=== PATIENT | female | born 1945 | race Caucasian/White ===

== ENCOUNTER 2023-12-30 10:12 | Emergency (ER) | payer MEDICARE, SELFPAY ==
[2023-12-30] VITALS (11 sets, daily range): BP systolic 211–245; BP diastolic 101–128; PULSE 80–97; RESP 18; TEMP 37.1; O2SAT 93–97
--- NOTE | 2023-12-30 10:30 | RT.EKG_ITS ---
APPROVED REPORT Exam: Resting ECG Reason for Exam: Nose Bleed Patient Location: E HR:84 bpm ECG Measurements Heart Rate 84 AXIS SD 181 P 56 QRSd 83 QRS -20 QT 396 T 62 QTc 468 Conclusion Sinus rhythm...normal P axis, V-rate 60- 99 Left ventricular hypertrophy...multiple voltage criteria Narrow complex normal sinus rhythm at a rate of 84. Intervals within normal limits. Left axis devia tion LVH based on voltage criteria in aVL. No ST segment abnormalities. T wave flattening in aVL. No prior for comparison.
[2023-12-30 11:04] LABS: Abs Immature Grans 0.03 10^3/uL (0.0-0.06); Absolute Basophil Count 0.02 10^3/uL (0.0-0.2); Absolute Eosinophil Count 0.05 10^3/uL (0.0-0.7); Absolute Lymphocyte Count 1.19 10^3/uL (1.2-3.4); Absolute Monocyte Count 0.41 10^3/uL (0.1-0.8); Absolute Neutrophil Count 4.63 10^3/uL (1.2-6.7); Basophils % 0.3; Eosinophils % 0.8; HCT 42.9 % (36.0-46.0); HGB 13.9 g/dL (11.2-15.7); Immature Grans % 0.5; Lymphocytes % 18.8; MCH 29.4 pg (27.0-33.0); MCHC 32.4 % (32.0-36.0); MCV 91 fL (80-95); MPV 9.1 fL (8.0-11.0); Monocytes % 6.5; Neutrophils % 73.1; Platelet Count 297 10^3/uL (130-400); RBC 4.73 10^6/uL (3.93-5.22); RDW 12.5 % (11.7-14.6); RDW-SD 41.1 fL; WBC 6.33 10^3/uL (4.4-10.8)
[2023-12-30 11:19] LABS: ALT 25 U/L (14-59); AST 15 U/L (15-37); Albumin 3.8 g/dL (3.4-5.0); Alkaline Phosphatase 94 U/L (46-116); Anion Gap 9.2 mmol/L (3-11); BUN 16 mg/dL (7-18); Bilirubin, Total 0.5 mg/dL (0.2-1.0); CO2 28.8 mmol/L (21.0-32.0); Calcium 9.5 mg/dL (8.5-10.1); Chloride 104 mmol/L (98-107); Estimated GFR 58.39 (mL/min/1.73m2); Glucose 251 mg/dL (74-106); Magnesium 1.9 mg/dL (1.8-2.4); Potassium 4.1 mmol/L (3.5-5.1); Sodium 142 mmol/L (136-145); Total Protein 7.5 g/dL (6.4-8.2)
[2023-12-30 11:27] LABS: Bilirubin Negative (Negative); Blood Negative (Negative); Clarity Clear (Clear); Glucose 100 mg/dL (Negative); Ketones Trace mg/dL (Negative); Leukocyte Esterase Small (Negative); Nitrite Negative (Negative); Urobilinogen 0.2 mg/dL (Up to 0.2); pH 6.5 (5-8)
[2023-12-30 11:39] LABS: Bacteria Few HPF (Negative); C & S Indicated? No/Sq. Contamination; Casts Negative LPF (Negative); Crystals Negative HPF (Negative); Epithelial Cells Many HPF (Negative); Mucus Negative (Negative); Other Cells Rare Renal (Negative); RBC 0-2 HPF (0-2); WBC 20-50 HPF (0-5)
[2023-12-30] MEDS: Cellulose,Oxidized 2X3 PKT 1 EACH MC (11:41)
--- NOTE | 2023-12-30 11:59 | W.ED.GENAD ---
HPI General Date/Time Provider Initiated Documentation: 12/30/23 10:25. HPI Narrative: This 78-year-old female with history of hypertension and diabetes who self discontinued meds many years ago because they are poison presents with report of recurrent epistaxis. She was seen in her doctor's prior to this and sent here for assessment. On exam she is not actively bleeding she denies any trauma. She states she has a history of epistaxis in the past but it has been many years. She denies any headache, chest pain, shortness of breath, urinary symptoms, or vision change. She otherwise feels well. Related Data Home Medications Medication Instructions Recorded Confirmed lisinopril 10 mg tablet 10 mg PO DAILY #14 tabs 12/30/23 Previous Rx's Medication Instructions Recorded lisinopril 10 mg tablet 10 mg PO DAILY #14 tabs 12/30/23 Allergies Allergy/AdvReac Type Severity Reaction Status Date / Time Penicillins AdvReac Intermediate Other (See Verified 12/30/23 10:24 Comment) Sulfa (Sulfonamide AdvReac Intermediate Other (See Verified 12/30/23 10:24 Antibiotics) Comment) General Stated Complaint: Epistaxis CINTHIA: 3 Course Vital Signs Vital signs: Vital Signs Temperature 37.1 C 12/30/23 10:19 Pulse 93 H 12/30/23 10:19 Respiratory Rate 18 12/30/23 10:19 Blood Pressure 245/128 H 12/30/23 10:19 Pulse Oximetry 97 12/30/23 10:19 Temperature 37.1 C 12/30/23 10:19 Pulse 93 H 12/30/23 10:19 Respiratory Rate 18 12/30/23 10:19 Respiratory Effort Normal 12/30/23 11:04 Blood Pressure 245/128 H 12/30/23 10:19 Pulse Oximetry 97 12/30/23 10:19 Oxygen Delivery Method Room Air 12/30/23 10:19 Oxygen Flow Rate 0 12/30/23 10:19 Lab/Test Results Lab/Test Results: Laboratory Tests Range/Units 12/30/23 12/30/23 12/30/23 10:44 10:45 11:14 WBC (4.4-10.8) 10^3/uL 6.33 RBC (3.93-5.22) 10^6/uL 4.73 Hgb (11.2-15.7) g/dL 13.9 Hct (36.0-46.0) % 42.9 MCV (80-95) fL 91 MCH (27.0-33.0) pg 29.4 MCHC (32.0-36.0) % 32.4 RDW (11.7-14.6) % 12.5 Plt Count (130-400) 10^3/uL 297 MPV (8.0-11.0) fL 9.1 Immature Gran % 0.5 Neutrophils % 73.1 Lymphocytes % 18.8 Monocytes % 6.5 Eosinophils % 0.8 Basophils % 0.3 Nucleated RBC % (0.0-0.3) % 0.0 Absolute Neutrophils (1.2-6.7) 10^3/uL 4.63 Absolute Lymphocytes (1.2-3.4) 10^3/uL 1.19 L Absolute Monocytes (0.1-0.8) 10^3/uL 0.41 Absolute Eosinophils (0.0-0.7) 10^3/uL 0.05 Absolute Basophils (0.0-0.2) 10^3/uL 0.02 Sodium (136-145) mmol/L 142 Potassium (3.5-5.1) mmol/L 4.1 Chloride (98-107) mmol/L 104 Carbon Dioxide (21.0-32.0) mmol/L 28.8 Anion Gap (3-11) mmol/L 9.2 BUN (7-18) mg/dL 16 Creatinine (0.55-1.02) mg/dL 1.0 Est GFR (CKD-EPI 2020) (mL/min/1.73m2) 58.39 Glucose (74-106) mg/dL 251 H Calcium (8.5-10.1) mg/dL 9.5 Magnesium Cancelled 1.9 Total Bilirubin (0.2-1.0) mg/dL 0.5 AST (15-37) U/L 15 ALT (14-59) U/L 25 Alkaline Phosphatase (46-116) U/L 94 Total Protein (6.4-8.2) g/dL 7.5 Albumin (3.4-5.0) g/dL 3.8 Urine Color (Yellow) Yellow Urine Clarity (Clear) Clear Urine pH (5-8) 6.5 Ur Specific [place] (1.005-1.025) 1.020 Urine Protein (Neg-Trace) mg/dL 30 H Urine Ketones (Negative) mg/dL Trace H Urine Blood (Negative) Negative Urine Nitrite (Negative) Negative Urine Bilirubin (Negative) Negative Urine Urobilinogen (Up to 0.2) mg/dL 0.2 Ur Leukocyte Esterase (Negative) Small H Urine RBC (0-2) HPF 0-2 Urine WBC (0-5) HPF 20-50 H Ur Epithelial Cells (Negative) HPF Many Urine Crystals (Negative) HPF Negative Urine Bacteria (Negative) HPF Few Urine Casts (Negative) LPF Negative Urine Mucus (Negative) Negative Urine Other (Negative) Rare Renal Ur Culture Indicated? No/Sq. Contamination Urine Glucose (Negative) mg/dL 100 H Medical Decision Making Alert and oriented times four 78-year-old female who presents with recurrent epistaxis from her doctor's office On exam there is resolution of epistaxis Patient is markedly hypertensive although asymptomatic with this EKG is consistent with longstanding hypertension, labs are consistent with kuc-[id number] diabetes, patient adamantly refusing metformin, no evidence of DKA or HHS Fully alert and oriented, ambulatory with steady gait, asymptomatic hypertension Will reinitiate patient's lisinopril 10 mg and refer for recheck in 48 hours She had recurrence of the epistaxis on assessment, I did place Surgicel and a Merisel in patient's right nare and she will remove this at home in 48 to 72 hours There is no indication for antibiotics at this time, patient is aware that this cannot stay in place longer than 72 hours without antibiotics I discussed the importance of this Patient will be discharged with resolution of pain at time of reassessment Quality:SDOH Health Related Social Needs: No Data to Display PFSH All Active Problems (Updated 12/30/23 @ 11:51 by SISSY Montoya) Hypertension (Chronic) Epistaxis (Acute) Social History Smoking/Tobacco Use Status: Never Smoking risk assessment performed?: Yes Alcohol Intake: never Do you feel safe at home: Yes Do you feel safe in your relationship?: Yes Discharge Plan Disposition Patient Disposition: Home Condition: Stable Discharge Details Clinical Impression: Epistaxis, Hypertension Primary Care Provider: Unknown,Unknown ED Provider: Tabatha Shen Home Meds and New Rx's Prescriptions: New lisinopril 10 mg tablet 10 mg PO DAILY Qty: 14 0RF Discharge Instructions Instructions: Nosebleed (ED), Hypertension (ED) Additional Instructions: Follow-up with your doctor for recheck in 48 hours I started you on blood pressure medication your blood pressure is very high and has likely been very high for a long period of time If you are able to purchase a blood pressure cuff think this is a good idea otherwise he can either go to your primary care physician and have a nurse visit for blood pressure check or go to the pharmacy and have her blood pressure checked I recommend cutting her nostrils daily with Vaseline Humidifier in your room The nasal packing will need to be removed in 72 hours, do not keep it in place for any longer, you can actually pull this out on your own and if you do have rebleeding please use the nasal clamp Pull lightly to remove Please return earlier should you have headache, vision change, persistent bleeding, or should he have any reports worsening complaints
[2023-12-30] MEDS: Lisinopril 10 MG TAB PO (12:07)
--- NOTE | 2023-12-31 12:02 | NUR.NOTE ---
Accessed pt chart to determine the number of EKG orders. Duplicate order cancelled. Nursing Note:
== END 2023-12-30 12:20 | disposition home or self-care (01) ==
PROVIDERS: Emergency Provider Physician Assistant
DX: R04.0 Epistaxis (principal); I10 Essential (primary) hypertension; E11.9 Type 2 diabetes mellitus without complications
CPT/HCPCS: 30901; 80053; 93005; 99283; 81003; 81015; 83735; 85025; 93010

== ENCOUNTER 2024-01-20 16:02 | Emergency (ER) | payer BC, SELFPAY ==
[2024-01-20 16:07] VITALS: BP 228/112; PULSE 90; RESP 20; O2SAT 95
--- NOTE | 2024-01-20 16:07 | ED.GENADUL_ITS ---
Discharge Plan Disposition Patient Disposition: Home Discharge Details Clinical Impression: Elevated systolic blood pressure reading with diagnosis of hypertension Primary Care Provider: Unknown,Unknown ED Provider: Jann Valdovinos Home Meds and New Rx's Prescriptions: Continued lisinopril 10 mg tablet 10 mg PO DAILY Qty: 14 0RF garlic 1,000 mg capsule 1,000 mg PO DAILY Discharge Instructions Instructions: DASH Eating Plan (ED), Hypertension (ED), Diabetes and Nutrition (ED) Additional Instructions: You are seen in the emergency department for your elevated blood pressure. Your blood work shows that you are not anemic and that your kidneys are working well. Please record your blood pressure every day and follow-up with your primary care provider. As we discussed, please return to the emergency department if you develop chest pain shortness of breath or any weakness in any of your extremities or difficulty speaking. Discharge Data Discharge Date/Time-TO BE ENTERED AT DEPARTURE: 01/20/24 16:56 HPI General Date/Time Provider Initiated Documentation: 01/20/24 16:07 . HPI Narrative: MDM This is an overall very well-appearing normothermic and not tachycardic 78-year-old female with diabetes and hypertension but no complaints. Specifically no chest pain so I did not obtain an ECG. Patient is neurologically intact so my suspicion for CVA is low so I did not feel that the patient required a CAT scan and MRI nor would she be of candidate for tPA. No epistaxis. Patient does have some dyspnea on exertion but is not volume overloaded and had no B-lines on limited bedside echocardiogram so my suspicion was low for acute CHF. Given no headache I was not concerned for intracranial hemorrhage. Based on the patient's age my suspicion for renal arterial stenosis is low also did not feel that the patient required a CT angiogram. No tachycardia to suggest pheochromocytoma so I did not send metanephrines. Patient does not have proptosis so my suspicion was low for Graves' disease so I did not send a TSH. Will obtain basic labs to assess for acute renal failure. Will also screen for DKA though the patient denies polyuria polydipsia. Her elevated A1c was consistent with diabetes at 9.7% however patient reports that she has had aches from metformin and does not wish to restart this medication. I considered posterior circulation CVA however the patient has no nystagmus I did not apply the hints exam. Furthermore patient notes that her dizziness is more of a lightheadedness. Patient, her great granddaughter and I discussed that the patient's blood pressure could be made any particular number in the emergency department but that there were iatrogenic risks associated with rapid reductions in blood pressure in the setting of longstanding hypertension. We d iscussed risks of stroke due to sudden reductions in blood pressure. Given that the patient is asymptomatic we will screen for endorgan damage and in the absence of any will proceed with conservative outpatient down titration of the patient's blood pressure using escalating doses of antihypertensives and additional agents as best determined by the patient's primary care provider. 4:40 PM Patient did have a mild anion gap at 13.1 with mild hyperglycemia with a serum glucose of 199. Normal bicarbonate??not consistent with DKA. Normal reassuring creatinine. CBC lacks anemia thrombocytopenia and leukocytosis. No signs of endorgan damage. Patient's blood pressure improved mildly without intervention. I provided the patient and her great granddaughter with information on the DASH diet and eating with diabetes. I have advised patient and her great granddaughter to keep a blood pressure diary at home and follow-up with primary care. Advised that the patient may require additional doses of lisinopril and/or additional blood pressure agents. We had a long conversation about return to the emergency department for any chest pain any shortness of breath any weakness or any episodes of syncope. Patient understood her return indications and was discharged with an empiric trial of expectant outpatient management. Chronic conditions affecting the care of the patient: Diabetes History obtained from an outside historian: [facility] progress note External record review: [facility] EMR Medications: N/A Social determinants of health affecting disposition: N/A Management discussed with: N/A Treatment/interventions considered: N/A Response to therapies provided: N/A HPI This is a 78-year-old female with history of hypertension and hyperlipidemia with diabetes and recent A1c of 9.7 arriving to the emergency department via private vehicle with her great granddaughter in the setting of elevated blood pressure. Patient was sent in by her primary care provider as she was noted to have a blood pressure of 196/120. She is on outpatient 10 mg of daily lisinopril and was advised to take a total of 20 mg of lisinopril this morning. She said that she took this. She denies headache chest pain shortness of breath lower extremity swelling. She does feel slightly lightheaded. She has not had any syncope. She was able to drive to her primary care appointment. She denies any nosebleeds. She denies fevers dysuria frequency nausea and shortness of breath. She has had no visual changes. She denies routine tobacco, ethanol, and illicits. Exam General: Well-appearing in no acute distress speaking in complete sentences. Head: Normocephalic, atraumatic. Eye:[Pupils equal, round reactive to light.] Extraocular eye movements intact. No conjunctival injection. No scleral icterus. Ear, nose, mouth, throat: Grossly normal inspection. Normal voice, handling secretions normally. Neck: Trachea midline. Cardiovascular: Well-perfused distal extremities. Regular rate and rhythm. Respiratory: Nonlabored respiration. Clear lungs bilaterally. Gastrointestinal: Nondistended abdomen. Soft nontender. Musculoskeletal: No significant lower extremity pitting edema. Moving all 4 extremities spontaneously. Skin: Normal for age and race, grossly normal temperature and turgor. No acute rash. Neurologic: Alert and appropriate, no apparent acute deficits. GCS 15. Cranial nerves II through XII intact grossly. No dysmetria. No dysdiadochokinesia. 5 out of 5 bilateral upper and lower extremity strength. Psychiatric: Mood and manner are appropriate. Grooming and personal hygiene are appropriate. Related Data Home Medications Medication Instructions Recorded Confirmed lisinopril 10 mg tablet 10 mg PO DAILY #14 tabs 12/30/23 01/20/24 garlic 1,000 mg capsule 1,000 mg PO DAILY 01/20/24 01/20/24 Previous Rx's Medication Instructions Recorded lisinopril 10 mg tablet 10 mg PO DAILY #14 tabs 12/30/23 Allergies Allergy/AdvReac Type Severity Reaction Status Date / Time Penicillins AdvReac Intermediate Other (See Verified 01/20/24 16:10 Comment) Sulfa (Sulfonamide AdvReac Intermediate Other (See Verified 01/20/24 16:10 Antibiotics) Comment) General CINTHIA: 3 Medical Decision Making Quality:SDOH Health Related Social Needs: No Data to Display PFSH All Active Problems (Updated 01/20/24 @ 16:40 by Jann Valdovinos MD) Elevated systolic blood pressure reading with diagnosis of hypertension (Acute) Hypertension (Chronic) Epistaxis (Acute) Social History Smoking/Tobacco Use Status: Never Smoking risk assessment performed?: Yes Alcohol Intake: never Do you feel safe at home: Yes Do you feel safe in your relationship?: Yes POCUS Exam (ED) Limited Cardiac Exam DATE OF EXAM: 01/20/24 TIME OF EXAM: 16:36 PROVIDER THAT PERFORMED THE STUDY: Jann Valdovinos IS THIS A REPEAT EXAM DURING THIS ENCOUNTER: no REASON FOR EXAM: Other indication: Elevated blood pressure VISUALIZED STRUCTURES: Left ventricle and LVOT VIEW OBTAINED: Apical 4-Chamber (Patient could not tolerate apical four- chamber), Parasternal long-axis and Parasternal short-axis PERTINENT FINDINGS/IMPRESSION: No LV dysfunction and No pericardial effusion INCIDENTAL FINDINGS: Aortic outflow track less than 4 cm, good squeeze, no significant pericardial effusion. Patient could not tolerate apical four-chamber. No B-lines bilaterally. Exam complete
[2024-01-20 16:30] LABS: Abs Immature Grans 0.01 10^3/uL (0.0-0.06); Absolute Basophil Count 0.02 10^3/uL (0.0-0.2); Absolute Eosinophil Count 0.03 10^3/uL (0.0-0.7); Absolute Lymphocyte Count 1.42 10^3/uL (1.2-3.4); Absolute Monocyte Count 0.52 10^3/uL (0.1-0.8); Absolute Neutrophil Count 3.32 10^3/uL (1.2-6.7); Basophils % 0.4; Eosinophils % 0.6; HCT 42.2 % (36.0-46.0); HGB 13.8 g/dL (11.2-15.7); Immature Grans % 0.2; Lymphocytes % 26.7; MCH 29.6 pg (27.0-33.0); MCHC 32.7 % (32.0-36.0); MCV 91 fL (80-95); MPV 9.1 fL (8.0-11.0); Monocytes % 9.8; Neutrophils % 62.3; Platelet Count 299 10^3/uL (130-400); RBC 4.66 10^6/uL (3.93-5.22); RDW 12.5 % (11.7-14.6); WBC 5.32 10^3/uL (4.4-10.8)
[2024-01-20 16:33] VITALS: TEMP 36.7
[2024-01-20 16:38] LABS: Anion Gap 13.4 mmol/L (3-11); BUN 11 mg/dL (7-18); CO2 23.6 mmol/L (21.0-32.0); CREATININE 0.8 mg/dL (0.55-1.02); Calcium 9.4 mg/dL (8.5-10.1); Chloride 103 mmol/L (98-107); Estimated GFR 76.31 (mL/min/1.73m2); Glucose 199 mg/dL (74-106); Potassium 3.8 mmol/L (3.5-5.1); Sodium 140 mmol/L (136-145)
[2024-01-20 16:53] VITALS: BP 202/110; PULSE 87; O2SAT 98
== END 2024-01-20 16:56 | disposition home or self-care (01) ==
LOC: ER 16:58
PROVIDERS: Emergency Provider Emergency Medicine
DX: R42 Dizziness and giddiness (principal); I10 Essential (primary) hypertension; R06.00 Dyspnea, unspecified; R06.02 Shortness of breath
CPT/HCPCS: 80048; 93308; 99282; 85025; 99283

== ENCOUNTER 2024-04-08 17:12 | Emergency (ER) | payer BC, SELFPAY ==
[2024-04-08] VITALS (24 sets, daily range): BP systolic 175–227; BP diastolic 85–115; PULSE 71–93; RESP 14–26; TEMP 37.2; O2SAT 95
--- NOTE | 2024-04-08 17:45 | RT.EKG_ITS ---
APPROVED REPORT Exam: Resting ECG Reason for Exam: weakness Patient Location: E HR:76 bpm ECG Measurements Heart Rate 76 AXIS MT 173 P 25 QRSd 90 QRS -23 QT 394 T 27 QTc 444 Conclusion Sinus rhythm...normal P axis, V-rate 60- 99 Left ventricular hypertrophy...multiple voltage criteria Narrow complex normal sinus rhythm at a rate of 76. Left axis deviation LVH based on voltage criteri a. Intervals within normal limits. No ST segment abnormalities. No T wave versions. Compared to p rior dated earlier this year T wave inversion in aVL has improved. T waves are now more prominent in V2. No acute injury pattern.
[2024-04-08 18:27] LABS: Abs Immature Grans 0.02 10^3/uL (0.0-0.06); Absolute Basophil Count 0.02 10^3/uL (0.0-0.2); Absolute Eosinophil Count 0.04 10^3/uL (0.0-0.7); Absolute Monocyte Count 0.55 10^3/uL (0.1-0.8); Basophils % 0.4 %; Eosinophils % 0.7 %; HCT 39.7 % (36.0-46.0); HGB 13.1 g/dL (11.2-15.7); Immature Grans % 0.4 %; Lymphocytes % 32.5 %; MCH 29.9 pg (27.0-33.0); MCV 91 fL (80-95); MPV 9.1 fL (8.0-11.0); Monocytes % 9.9 %; Neutrophils % 56.1 %; Platelet Count 272 10^3/uL (130-400); RBC 4.38 10^6/uL (3.93-5.22); RDW 12.6 % (11.7-14.6); RDW-SD 41.8 fL; WBC 5.53 10^3/uL (4.4-10.8)
[2024-04-08] MEDS: hydroCHLOROthiazide 25 MG TAB PO (18:37)
--- NOTE | 2024-04-08 18:37 | ED.GENADUL_ITS ---
Discharge Plan Disposition Patient Disposition: Home Discharge Details Clinical Impression: Light-headed feeling, Hypertension, Diabetes Primary Care Provider: Unknown,Unknown ED Provider: Tabatha Shen Home Meds and New Rx's Prescriptions: New metoprolol succinate [Toprol XL] 25 mg tablet extended release 24 hr 12.5 mg PO HS Qty: 14 0RF hydrochlorothiazide 25 mg tablet 25 mg PO QAM Qty: 30 0RF Continued garlic 1,000 mg capsule 1,000 mg PO DAILY Discontinued lisinopril 10 mg tablet 10 mg PO DAILY Qty: 14 0RF Discharge Instructions Instructions: Hypertension (ED), Diabetic Hyperglycemia (ED) Additional Instructions: Take the hydrochlorothiazide in the morning take a multivitamin daily with the hydrochlorothiazide Take the metoprolol half a tablet every evening Your blood sugar is quite high, please follow-up with your doctor regarding managing this as this can cause your symptoms as well Please follow-up with your doctor on Thursday for reassessment Check your blood pressure every day and keep a journal It sounds like the first medication he tried was lisinopril, this caused an allergic reaction and this was discontinued, the second medication he took with amlodipine and he became quite dizzy with this and it was discontinued, the third medication which you are taking now is metoprolol, I am decreasing the dose of the metoprolol to see if it helps with your symptoms and adding on a new medication hydrochlorothiazide which she will take in the morning Please return earlier should you have new or worsening complaints Discharge Data Discharge Date/Time-TO BE ENTERED AT DEPARTURE: 04/08/24 20:26 HPI General Date/Time Provider Initiated Documentation: 04/08/24 17:33 . HPI Narrative: This 78-year-old female presents with report of lightheadedness today. pt has had elevated blood pressure for the past month have been on 3 different medications. Her most recent medication is metoprolol. States today she felt very lightheaded approximately 1:00. Patient denies any current chest pain or shortness of breath. She denies known exacerbating or alleviating factors. She states she feels similarly to when her blood pressure has been elevated in the past. She is only been on metoprolol since Thursday. She states she felt fine yesterday. Denies any calf pain or swelling, headache, vision change, strength or sensation change. Related Data Home Medications Medication Instructions Recorded Confirmed garlic 1,000 mg capsule 1,000 mg PO DAILY 01/20/24 04/08/24 hydrochlorothiazide 25 mg tablet 25 mg PO QAM #30 tabs 04/08/24 metoprolol succinate 25 mg 12.5 mg (1/2 x 25 mg) PO HS #14 04/08/24 tablet,extended release 24 hr tabs (Toprol XL) Previous Rx's Medication Instructions Recorded hydrochlorothiazide 25 mg tablet 25 mg PO QAM #30 tabs 04/08/24 metoprolol succinate 25 mg 12.5 mg (1/2 x 25 mg) PO HS #14 04/08/24 tablet,extended release 24 hr tabs (Toprol XL) Allergies Allergy/AdvReac Type Severity Reaction Status Date / Time lisinopril Allergy Severe Anaphylaxis Verified 04/08/24 18:31 Penicillins AdvReac Intermediate Other (See Verified 04/08/24 18:31 Comment) Sulfa (Sulfonamide AdvReac Intermediate Other (See Verified 04/08/24 18:31 Antibiotics) Comment) General Stated Complaint: Dizzy/Sync CINTHIA: 3 Exam Narrative Exam Narrative: 78-year-old female presenting with being alert and oriented, pupils equal round reactive to light and accommodation, uvula midline, oropharynx patent, no carotid bruit, lungs clear to auscultation, cardiac rate rhythm regular, no abdominal tenderness, no pallor, alert and oriented x 4, cranial nerves II through XII intact, ambulatory with steady gait, negative [id number], negative heel rizo, Course Vital Signs Vital signs: Vital Signs Temperature 37.2 C 04/08/24 17:15 Pulse 83 04/08/24 17:15 Respiratory Rate 16 04/08/24 17:15 Blood Pressure 227/115 H 04/08/24 17:15 Pulse Oximetry 95 04/08/24 17:15 Temperature 37.2 C 04/08/24 17:15 Temperature Source Tympanic 04/08/24 17:15 Pulse 83 04/08/24 17:15 Respiratory Rate 16 04/08/24 17:15 Blood Pressure 227/115 H 04/08/24 17:15 Blood Pressure Position Sitting 04/08/24 17:15 Pulse Oximetry 95 04/08/24 17:15 Oxygen Delivery Method Room Air 04/08/24 17:15 Oxygen Flow Rate 0 04/08/24 17:15 Pain Level 0 04/08/24 17:15 Lab/Test Results Lab/Test Results: Laboratory Tests Range/Units 04/08/24 18:20 WBC (4.4-10.8) 10^3/uL 5.53 RBC (3.93-5.22) 10^6/uL 4.38 Hgb (11.2-15.7) g/dL 13.1 Hct (36.0-46.0) % 39.7 MCV (80-95) fL 91 MCH (27.0-33.0) pg 29.9 MCHC (32.0-36.0) % 33.0 RDW (11.7-14.6) % 12.6 Plt Count (130-400) 10^3/uL 272 MPV (8.0-11.0) fL 9.1 Immature Gran % % 0.4 Neutrophils % % 56.1 Lymphocytes % % 32.5 Monocytes % % 9.9 Eosinophils % % 0.7 Basophils % % 0.4 Nucleated RBC % (0.0-0.3) % 0.0 Absolute Neutrophils (1.2-6.7) 10^3/uL 3.10 Absolute Lymphocytes (1.2-3.4) 10^3/uL 1.80 Absolute Monocytes (0.1-0.8) 10^3/uL 0.55 Absolute Eosinophils (0.0-0.7) 10^3/uL 0.04 Absolute Basophils (0.0-0.2) 10^3/uL 0.02 Medical Decision Making 78-year-old female presenting with lightheadedness and hypotension, given hydrochlorothiazide in addition to the 25 of metoprolol XL she took this morning blood pressure at reassessment is 192/89. She states her symptoms have resolved and she is feeling symptomatic improvement. Her neurological exam is nonfocal and I have very low suspicion for neurological or cardiac event. She has a negative troponin and EKG without acute abnormality. Her glucose is quite high at 263 with a hemoglobin A1c of 10.1, it is recommended she start on metformin, however she is refusing as she states that it is cancer . Patient is however willing to take hydrochlorothiazide and metoprolol so I will have her take her metoprolol in the evening and the hydrochlorothiazide in the morning to prevent lightheadedness. She will need close outpatient follow-up with her primary care physician, the recommendation is on Thursday. Patient is feeling marked improvement in symptoms and stable for discharge home at time of reassessment. There is no evidence of diabetic ketoacidosis and no suspicion for HHS. Patient has creatinine of 1.1 which is baseline for the patient, TSH is mildly elevated, however free T4 is within normal limits Quality:SDOH Health Related Social Needs: No Data to Display PFSH All Active Problems (Updated 04/08/24 @ 23:24 by SISSY Montoya) Diabetes (Chronic) Hypertension (Chronic) Light-headed feeling (Acute) Social History Smoking/Tobacco Use Status: Never Smoking risk assessment performed?: Yes Alcohol Intake: never Housing: house Do you feel safe at home: Yes Do you feel safe in your relationship?: Yes
[2024-04-08 18:50] LABS: ALT 33 U/L (14-59); AST 15 U/L (15-37); Albumin 3.8 g/dL (3.4-5.0); Alkaline Phosphatase 99 U/L (46-116); Anion Gap 10.2 mmol/L (3-11); BUN 21 mg/dL (7-18); Bilirubin, Total 0.3 mg/dL (0.2-1.0); CO2 25.8 mmol/L (21.0-32.0); CREATININE 1.1 mg/dL (0.55-1.02); Calcium 9.1 mg/dL (8.5-10.1); Chloride 102 mmol/L (98-107); Estimated GFR 52.08 (mL/min/1.73m2); Glucose 263 mg/dL (74-106); Potassium 3.7 mmol/L (3.5-5.1); Sodium 138 mmol/L (136-145); TSH (W/Ref FT4) 5.28 uIU/mL (0.36-3.74); Total Protein 7.3 g/dL (6.4-8.2); Troponin I < 50 ng/L (< or =60)
[2024-04-08 19:06] LABS: FREE T4 0.84 ng/dL (0.76-1.46)
[2024-04-08 22:45] LABS: Hemoglobin A1C 10.1 % (<5.7)
--- NOTE | 2024-04-12 11:45 | NUR.NOTE ---
Nursing Note: Pt was referred to [facility] for f/u on blood pressure ED visit. [facility] was unable to see ED documentation and requested notes for follow up visit today. ED Physician note faxed to [facility], phone # [phone] Fax #
== END 2024-04-08 20:26 | disposition home or self-care (01) ==
PROVIDERS: Emergency Provider Physician Assistant
DX: R42 Dizziness and giddiness (principal); I10 Essential (primary) hypertension; E11.65 Type 2 diabetes mellitus with hyperglycemia
CPT/HCPCS: 36415; 80053; 93005; 99284; 83036; 83735; 84439; 84443; 84484; 85025; 93010